=== PATIENT | male | born 1965 | race Caucasian/White ===

== ENCOUNTER 2016-06-23 09:41 | Day surgery (SDC) | payer OTHER ==
[~2016-06-23] VITALS: Ht 180.3 cm
--- NOTE | 2016-06-24 07:52 | OR ---
ADMIT: 06/23/2016 RM/LOC: [facility] MR#: [id number] [address] [place] [id number] MISAELPARAG FARZANA Danielson [address] [place] [address] Operative/Delivery Room Report SEX: M AGE: 51 : 1965 SURGERY DATE: 06/23/2016 SURGEON: Vishnu Rebolledo MD TABLE COVER FOLDER: None. PREPROCEDURE DIAGNOSES: 1. Cervical disk degeneration. 2. Cervical neuritis. POSTPROCEDURE DIAGNOSES: 1. Cervical disk degeneration. 2. Cervical neuritis. PROCEDURE PERFORMED: Cervical epidural steroid injection, C6-C7 level. INDICATIONS FOR PROCEDURE: The patient is a pleasant gentleman with history of neck pain with headaches, secondary to above mentioned diagnoses, comes here for planned cervical epidural steroid injection. ANESTHESIA: Local without sedation. ESTIMATED BLOOD LOSS: Zero. COMPLICATIONS: None immediately evident. DESCRIPTION OF PROCEDURE: After the patient was seen in the preoperative area, vitals signs were taken. Prior to the procedure, the risks, benefits, and alternative therapies were discussed at length. Patient consent was obtained and updated. The patient was taken to the fluoroscopy suite and placed on the fluoroscopy table in the prone position. Pressure points were padded to comfort, monitors applied, and a timeout performed. Once adequate anesthesia of the skin over the cervical spine was achieved, the spine was prepped with ChloraPrep and draped in a sterile fashion. Under ADMIT: 06/23/2016 RM/LOC: [facility] MR#: [id number] [address] [place] [id number] FARZANA MARI [address] [place] [address] Operative/Delivery Room Report SEX: M AGE: 51 : 1965 fluoroscopic guidance, a 20-gauge 3.5-inch Tuohy needle was passed through the anesthetized skin to the C6-C7 epidural space using a continuous loss of resistance to saline technique. The needle placement in the epidural space was confirmed by loss of resistance to saline and then injection of 2 mL of Isovue 300, which showed a clear epidural pattern with spread of contrast as high as C2. At this time, 4 mL of solution containing 80 mg of methylprednisolone and preservative-free normal saline were injected. The patient tolerated the procedure well and was discharged to postanesthesia recovery where he continued to recover without difficulty. PLAN: Discharge instructions were given, followup scheduled. The patient was discharged home with a food service driver. Vishnu Rebolledo MD/ yoan JOB #: [id number] CC: Vishnu Rebolledo, Attending Physician Vanesa Davis, Family Physician
== END 2016-06-23 11:07 | disposition home or self-care (01) ==
LOC: SSS 09:41
PROC: 3E0S33Z Introduction of Anti-inflammatory into Epidural Space, Percutaneous Approach (ICD-10-PCS; principal; 2016-06-23)
PROC: 3E0S3BZ Introduction of Anesthetic Agent into Epidural Space, Percutaneous Approach (ICD-10-PCS; principal; 2016-06-23)
PROC: B01BYZZ Fluoroscopy of Spinal Cord using Other Contrast (ICD-10-PCS; principal; 2016-06-23)
DX: M50.123 Cervical disc disorder at C6-C7 level with radiculopathy (principal); M48.06 Spinal stenosis, lumbar region; G89.29 Other chronic pain; Z79.899 Other long term (current) drug therapy; Z98.890 Other specified postprocedural states